=== PATIENT | female | born 1970 | race Caucasian/White ===

== ENCOUNTER 2018-12-29 09:56 | Emergency (ER) | payer BC ==
--- NOTE | 2018-12-29 10:07 | EDM.PDOC ---
ED HPI GENERAL MEDICAL PROBLEM - General Chief Complaint: Upper Extremity Injury/Pain Stated Complaint: injured hand Time Seen by Provider: 12/29/18 10:04 Source of Information: Reports: Patient History Limitations: Reports: No Limitations - History of Present Illness INITIAL COMMENTS - FREE TEXT/NARRATIVE: HISTORY AND PHYSICAL: History of present illness: Patient is a 48-year-old female who presents to the emergency room today with complaints of right first digit pain. She states her backpack was falling and she went down to reach for it and "I'm not sure if I jammed it or twisted it funny" but now has pain to the proximal knuckle on that finger. There is mild erythema and soft tissue swelling. Denies any difficulty with range of motion although it does cause pain. No previous injury, fracture or trauma the affected extremity. Review of systems: As per history of present illness and below otherwise all systems reviewed and negative. Past medical history: As per history of present illness and as reviewed below otherwise noncontributory. Surgical history: As per history of present illness and as reviewed below otherwise noncontributory. Social history: See social history for further information Family history: As per history of present illness and as reviewed below otherwise noncontributory. Physical exam: General: Well-developed and well-nourished 48-year-old female. Alert and oriented. Nontoxic appearing and in no acute distress. HEENT: Atraumatic, normocephalic, pupils equal and reactive bilaterally, negative for conjunctival pallor or scleral icterus, mucous membranes moist, TMs normal bilaterally, throat clear, neck supple, nontender, trachea midline. No drooling or trismus noted. No meningeal signs. No hot potato voice noted. Lungs: Clear to auscultation, breath sounds equal bilaterally, chest nontender. Heart: S1S2, regular rate and rhythm without overt murmur Abdomen: Soft, nondistended, nontender. Negative for masses or hepatosplenomegaly. Negative for costovertebral tenderness. Pelvis: Stable nontender. Genitourinary: Deferred. Rectal: Deferred. Skin: Intact, warm, dry. No lesions or rashes noted. Extremities: Mild erythema and soft tissue swelling of the right index finger at the proximal knuckle. Denies any difficulty with range of motion although it does cause pain. Strong radial pulse. Cap refill less than 3 seconds Neurovascular unremarkable. Neuro: Awake, alert, oriented. Cranial nerves II through XII unremarkable. Cerebellum unremarkable. Motor and sensory unremarkable throughout. Exam nonfocal. Notes: X-ray shows no acute fracture dislocation or bony abnormality. There is minimal generalized soft tissue swelling within the second digit. This information was shared with the patient she is requesting a splint as she states "very clumsy" and is concerned she may hurt it again. Supportive care measures were reviewed and discussed. Voices understanding and is agreeable to plan of care. Denies any further questions or concerns at this time. Diagnostics: X-ray Therapeutics: Splint Prescription: None Impression: Contusion, right hand Plan: 1. Rest, ice, elevate the affected extremity. Please wear the splint as directed. 2. Tylenol and/or Ibuprofen as needed for pain management. 3. Follow up with the Orthopedic provider as we discussed. Return to the ED as needed and as discussed. Definitive disposition and diagnosis as appropriate pending reevaluation and review of above. Right Hand Pain Score (Numeric/FACES): 2 - Related Data Allergies Allergy/AdvReac Type Severity Reaction Status Date / Time adhesive Allergy Rash Verified 12/29/18 10:07 Penicillins Allergy Anaphylactic Verified 12/29/18 10:07 Shock Sulfa (Sulfonamide Allergy Hives Verified 12/29/18 10:07 Antibiotics) Home Meds: Home Meds . [No Known Home Meds] 12/29/18 [History] Review of Systems - Review of Systems Review Of Systems: ROS reveals no pertinent complaints other than HPI. ED EXAM, GENERAL - Physical Exam Exam: See Below (See dictation) Course - Vital Signs Last Recorded V/S: Last Vital Signs Temp 97.0 F 12/29/18 10:08 Pulse 82 12/29/18 10:08 Resp 16 12/29/18 10:08 BP 115/80 12/29/18 10:08 Pulse Ox 96 12/29/18 10:08 - Orders/Labs/Meds Orders: Active Orders 24 hr Category Date Time Status Communication Order [RC] STAT Care 12/29/18 11:06 Active Departure - Departure Time of Disposition: 11:04 Disposition: Home, Self-Care 01 Clinical Impression: Hand contusion Qualifiers: Encounter type: initial encounter Laterality: right Qualified Code(s): S60.221A - Contusion of right hand, initial encounter - Discharge Information Instructions: Hand Contusion, [id number] Referrals: PCP,Unknown [Primary Care Provider] - Forms: ED Department Discharge Additional Instructions: The following information is given to patients seen in the emergency department who are being discharged to home. This information is to outline your options for follow-up care. We provide all patients seen in our emergency department with a follow-up referral. The need for follow-up, as well as the timing and circumstances, are variable depending upon the specifics of your emergency department visit. If you don't have a primary care physician on staff, we will provide you with a referral. We always advise you to contact your personal physician following an emergency department visit to inform them of the circumstance of the visit and for follow-up with them and/or the need for any referrals to a consulting specialist. The emergency department will also refer you to a specialist when appropriate. This referral assures that you have the opportunity for follow-up care with a specialist. All of these measure are taken in an effort to provide you with optimal care, which includes your follow-up. Under all circumstances we always encourage you to contact your private physician who remains a resource for coordinating your care. When calling for follow-up care, please make the office aware that this follow-up is from your recent emergency room visit. If for any reason you are refused follow-up, please contact the [facility] Emergency Department at and asked to speak to the emergency department charge nurse. [facility] [address] [place] [id number] [id number] [facility] Professional [facility] [address] [place] [address], [address] [place] [address] 1. Rest, ice, elevate the affected extremity. Please wear the splint as directed. 2. Tylenol and/or Ibuprofen as needed for pain management. 3. Follow up with the Orthopedic provider as we discussed. Return to the ED as needed and as discussed. - My Orders Last 24 Hours: My Active Orders 12/29/18 11:06 Communication Order [RC] STAT - Assessment/Plan Last 24 Hours: My Active Orders 12/29/18 11:06 Communication Order [RC] STAT
--- NOTE | 2018-12-29 11:00 | CR ---
EXAMINATION: Right hand, second digit HISTORY: Injury COMPARISON: None TECHNIQUE: 3 views FINDINGS/IMPRESSION: There is no acute osseous abnormality, dislocation, or fracture. Bone mineralization and joint spaces are preserved. Minimal generalized soft tissue swelling within the second digit.
== END 2018-12-29 11:16 | disposition home or self-care (01) ==
LOC: MW.ED 09:56
DX: S60.221A Contusion of right hand, initial encounter (principal); Z88.0 Allergy status to penicillin; Z88.2 Allergy status to sulfonamides; Z91.09 Other allergy status, other than to drugs and biological substances; X58.XXXA Exposure to other specified factors, initial encounter
CPT/HCPCS: 73140-26-F6; 73140-F6; 99283-25

== ENCOUNTER 2022-01-03 06:32 | Day surgery (SDC) | payer BC ==
[2022-01-03] MEDS ORDERED: Lidocaine 1% 5 ML VIAL ONE (07:15)
[2022-01-03] MEDS ORDERED: Bupivacaine 0.5% 10 ML SDV ONE (07:15)
[2022-01-03] MEDS ORDERED: Propofol 200 MG/20 ML SDV ONE ×2 (07:17→10:53)
[2022-01-03] MEDS ORDERED: fentaNYL 250 MCG/5 ML SDV ONE ×2 (07:18→10:53)
[2022-01-03] MEDS ORDERED: Metoclopramide 10 MG/2 ML SDV IVPUSH PRN (07:40)
[2022-01-03] MEDS ORDERED: fentaNYL 100 MCG/2 ML SDV IVPUSH PRN (07:40)
[2022-01-03] MEDS ORDERED: Naloxone 0.4 MG/ML SDV IVPUSH PRN (07:40)
[2022-01-03] MEDS ORDERED: Ondansetron 4 MG/2 ML SDV IVPUSH PRN (07:40)
[2022-01-03] MEDS ORDERED: HYDROmorphone 1 MG/ML Syringe IVPUSH PRN (07:40)
[2022-01-03] MEDS ORDERED: Albuterol 0.083% 2.5 MG/3 ML Neb Soln NEB PRN (07:40)
[2022-01-03] MEDS ORDERED: Scopolamine 1.5 MG Transdermal Patch ONE (07:41)
[2022-01-03] MEDS ORDERED: Famotidine 20 MG/2 ML SDV ONE (07:42)
[2022-01-03] MEDS ORDERED: Lactated Ringers 1,000 ML IV SCH (08:00)
[2022-01-03] MEDS ORDERED: Clindamycin Phosphate in D5W 900 MG in Premix Bag 1 BAG IV ONE ×2 (08:00)
[2022-01-03] MEDS ORDERED: Ketorolac 30 MG/ML SDV ONE (09:19)
[2022-01-03] MEDS ORDERED: ePHEDrine 50 MG/ML SDV ONE (09:19)
[2022-01-03] MEDS ORDERED: Dexamethasone 4 MG/ML 5 ML MDV ONE (09:19)
[2022-01-03] MEDS ORDERED: Ondansetron 4 MG/2 ML SDV ONE (09:19)
[2022-01-03] MEDS ORDERED: Rocuronium Bromide 50 MG/5 ML Syringe ONE (09:19)
[2022-01-03] MEDS ORDERED: Sugammadex Sodium 200 MG/2 ML VIAL ONE (09:19)
[2022-01-03] MEDS ORDERED: HYDROmorphone 2 MG/ML Syringe ONE (10:32)
[2022-01-03] MEDS ORDERED: Ketamine HCL/NACL, ISO-OSM 50 MG/5 ML Syringe ONE (10:53)
[2022-01-03] MEDS ORDERED: Acetaminophen/HYDROcodone 325-5 MG Tab PO ONE (12:23)
== END 2022-01-03 13:45 | disposition home or self-care (01) ==
LOC: MW.SDS 06:32
PROVIDERS: ATTEND Podiatrist Foot & Ankle Surgery
DX: S92.351A Displaced fracture of fifth metatarsal bone, right foot, initial encounter for closed fracture (principal); E66.9 Obesity, unspecified; Z79.899 Other long term (current) drug therapy; Z91.040 Latex allergy status; Z87.891 Personal history of nicotine dependence; Z88.2 Allergy status to sulfonamides; Z88.0 Allergy status to penicillin; Z68.36 Body mass index [BMI] 36.0-36.9, adult
CPT/HCPCS: 28485; 81025; A9270; J1100; J1170; J1885; J2370; J2405; J2704; J3010; J3490; J7120; 01480